=== PATIENT | female | born 1945 | race Caucasian/White ===

== ENCOUNTER → 2017-01-23 | Outpatient (CLI) | payer OTHER | LOC: BMCIMAGING 13:22 | PROVIDERS: ATTEND Nurse Practitioner Adult Health | DX: Z12.31 Encounter for screening mammogram for malignant neoplasm of breast (principal); Z13.820 Encounter for screening for osteoporosis | CPT/HCPCS: G0202 ==

== ENCOUNTER → 2017-03-04 | Outpatient (CLI) | payer OTHER | LOC: BMCIMAGING 12:43 | PROVIDERS: ATTEND Nurse Practitioner Adult Health | DX: R05 Cough (principal); J98.6 Disorders of diaphragm; J98.11 Atelectasis ==

== ENCOUNTER → 2017-12-19 | Outpatient (CLI) | payer OTHER | LOC: BMCIMAGING 11:12 | PROVIDERS: ATTEND Nurse Practitioner Adult Health | DX: M51.36 Other intervertebral disc degeneration, lumbar region (principal); Z87.311 Personal history of (healed) other pathological fracture ==

== ENCOUNTER 2018-11-07 12:38 | Day surgery (SDC) | payer OTHER ==
[2018-11-07] MEDS ORDERED: ceFAZolin 2 GM/DEXTROSE 100 ML IV ONE (13:13)
--- NOTE | 2018-11-07 13:14 | PDHPUP ---
History & Physical Update H&P update statement: This history and physical update is based on an assessment of the patient which was completed after admission or registration (within 24 hours), but prior to the surgery/procedure. H&P update: H&P reviewed & patient examined, no change in patient's condition since H&P completed
[2018-11-07] MEDS ORDERED: LR 1,000 ML IV ONE (13:15)
[2018-11-07] MEDS ORDERED: LIDOCAINE 1% 2 ML INJ ID PRN (13:15)
[2018-11-07] MEDS ORDERED: IOPAMIDOL (ISOVUE-M 300) 15 ML VIAL ONE (14:04)
[2018-11-07] MEDS ORDERED: PROPOFOL 200 MG/20 ML VIAL ONE (14:52)
[2018-11-07] MEDS ORDERED: fentaNYL 100 MCG/2 ML INJ ONE (14:52)
[2018-11-07] MEDS ORDERED: DEXAMETHASONE 4 MG/ML VIAL ONE (14:54)
[2018-11-07] MEDS ORDERED: LIDOCAINE 2% 2 ML INJ ONE ×2 (14:54)
[2018-11-07] MEDS ORDERED: KETOROLAC 30 MG/1 ML SDV ONE (14:54)
--- NOTE | 2018-11-07 14:59 | PDANEPAE ---
ANE History of Present Illness right ureteral stone ANE Past Medical History - Cardiovascular History Hx Hypertension: Yes Hx Arrhythmias: No Hx Chest Pain: No Hx Coronary Artery / Peripheral Vascular Disease: No Hx CHF / Valvular Disease: No Hx Palpitations: No - Pulmonary History Hx COPD: No Hx Asthma/Reactive Airway Disease: No Hx Recent Upper Respiratory Infection: No Hx Oxygen in Use at Home: No Hx Sleep Apnea: No Sleep Apnea Screening Result - Last Documented: Negative Pulmonary History Comment: QUIT 30 YEARS AGO - Neurologic History Hx Cerebrovascular Accident: No Hx Seizures: No Hx Dementia: No - Endocrine History Hx Diabetes: No Obesity: mild - Renal History Hx Renal Disorders: Yes Renal History Comment: FIRST KIDNEY STONE - Liver History Hx Hepatic Disorders: No - Neurological & Psychiatric Hx Hx Neurological and Psychiatric Disorders: Yes Neurological / Psychiatric History Comment: DEPRESSION - Cancer History Hx Cancer: No - Congenital Disorder History Hx Congenital Disorders: No - GI History Hx Gastrointestinal Disorders: No - Chronic Pain History Chronic Pain: No - Surgical History Prior Surgeries: GALLBLADDER. HYSERECTOMY. FOOT SURGERIES ANE Review of Systems Review of systems is: negative Review of Systems: - Exercise capacity METS (RN): 4 METS ANE Patient History - Allergies Allergies/Adverse Reactions: No Allergies [NKDA] Allergy (Verified 11/06/18 22:14) - Home Medications Home medications: home medication list seen and reviewed Home Medications: Cholecalciferol (Vitamin D3) [Vitamin D3] 1,000 unit PO 11/07/18 [Last Taken ] Estradiol [Estrace Vaginal (*)] 11/07/18 [Last Taken 10/31/18] Flomax 0.4 MG (*) 11/07/18 [Last Taken 11/06/18 19:00] Levothyroxine [Synthroid 175 mcg (*)] 175 mcg PO DAILY06 11/07/18 [Last Taken 09:00] Losartan/Hydrochlorothiazide [Hyzaar 100-12.5 Tablet] 11/07/18 [Last Taken 09:00] Multivitamin [One Daily] 11/07/18 [Last Taken 11/06/18] Triamcinolone Acetonide [Nasacort] 11/07/18 [Last Taken 11/07/18] buPROPion XL [Wellbutrin 150mg XL] 11/07/18 [Last Taken 11/07/18 09:00] - NPO status NPO Since - Liquids (Date): 11/06/18 NPO Since - Liquids (Time): 22:30 NPO Since - Solids (Date): 11/06/18 NPO Since - Solids (Time): 15:00 - Anes Hx Anes Hx: no prior problems - Smoking Hx Smoking Status: Former smoker ANE Labs/Vital Signs - Vital Signs Height: 165.1 cm Weight: 81.647 kg ANE Physical Exam - Airway Neck exam: FROM Mallampati Score: Class 2 Mouth exam: normal dental/mouth exam - Pulmonary Pulmonary: no respiratory distress - Cardiovascular Cardiovascular: regular rate and rhythym - ASA Status ASA Status: II ANE Anesthesia Plan Anesthesia Plan: GA w LMA
--- NOTE | 2018-11-07 14:59 | POSTANESTH ---
Post Anesthetic Evaluation Cardiovascular Status: Normal, Stable Respiratory Status: Normal, Stable Level of Consciousness/Mental Status: Can Participate in Eval, Alert and Oriented Pain Control: Adequate, Prn Tx Ordered Nausea/Vomiting Control: Adequate, Prn Tx Ordered Complications Possibly Related to Anesthesia: None Noted
[2018-11-07] MEDS ORDERED: oxyCODONE IR 5 MG TAB PO PRN (15:19)
[2018-11-07] MEDS ORDERED: ACETAMINOPHEN 500 MG TAB PO PRN (15:19)
[2018-11-07] MEDS ORDERED: NALOXONE HCL 0.4 MG/ML INJ IVP PRN (15:19)
[2018-11-07] MEDS ORDERED: PROMETHAZINE HCL 25 MG/ML INJ IVP PRN (15:19)
[2018-11-07] MEDS ORDERED: ALBUTEROL 3 ML DEYVIAL IH PRN (15:19)
[2018-11-07] MEDS ORDERED: ONDANSETRON 4 MG/2 ML VIAL IVP PRN (15:19)
[2018-11-07] MEDS ORDERED: HYDROmorphONE/DILAUDID 2 MG/ML INJ IVP PRN (15:19)
[2018-11-07] MEDS ORDERED: LR 500 ML IV PRN (15:19)
[2018-11-07] MEDS ORDERED: fentaNYL 100 MCG/2 ML INJ IVP PRN (15:19)
[2018-11-07] MEDS ORDERED: METOCLOPRAMIDE 10 MG/2 ML VIAL IVP PRN (15:19)
--- NOTE | 2018-11-07 15:49 | POSTOPPROG ---
Post Op Note Date of Operation: 11/07/18 Surgeon: Chidi Willis Anesthesia: LMA Pre-op Diagnosis: right ureteral stone Post-op Diagnosis: same Indication: remove stone Procedure: cysto, right ureteroscopy, laser litho, right stent Findings: large stone in distal ureter Inf/Abcess present in the surg proc area at time of surgery?: No EBL: Minimal Complications: none Specimen(s): stone sent to path
--- NOTE | 2018-11-07 16:34 | GOP ---
[f rep st] OPERATIVE REPORT DATE OF OPERATION: SURGEON: Chidi Willis MD ANESTHESIA: General. PREOPERATIVE DIAGNOSIS: Right ureteral stone. POSTOPERATIVE DIAGNOSIS: Right ureteral stone. PROCEDURE PERFORMED: Right ureteroscopy, laser lithotripsy, stent placement. FINDINGS: INDICATIONS: This is a woman who presented with a right ureteral stone with significant hydronephros is. DESCRIPTION OF PROCEDURE: Consent obtained, patient was brought to the operating room. Once general anesthesia was underway, she was put in the lithotomy position, prepped and draped in the normal della rile fashion. A 22-Bolivian rigid scope was passed through the bladder under direct vision. Anterior urethra and bladder were normal. The right ureteral orifice was cannulated with a 0.035 Sensor wire. This was followed fluoroscopically up to the renal pelvis. Semi-rigid ureteroscope was then passed into the distal ureter. The stone was identified and 365 micron holmium laser fiber was utilized to break the stone into multiple fragments. Several of these fragments were washed from the ureter. T he largest pieces were grasped with a basket and sent to pathology for evaluation. The scope was then replaced. There was no evidence of any remaining stone. The ureteroscope was rem jose g. A 6 Bol[place]ian x 22 cm stent was then passed over the guidewire. It was seen to coil fluoroscopic ally in the renal pelvis and cystoscopically in the bladder. The bladder was drained. The patient w as transferred to the recovery room in good condition. /[id number]/MODL
[2018-11-07 17:09] VITALS: BP 122/75
== END 2018-11-07 17:09 | disposition home or self-care (01) ==
LOC: FSGY 12:38
PROVIDERS: ATTEND Urology
PROC: BT1F1ZZ Fluoroscopy of Left Kidney, Ureter and Bladder using Low Osmolar Contrast (ICD-10-PCS; principal; 2018-11-07 15:00)
PROC: 0TC68ZZ Extirpation of Matter from Right Ureter, Via Natural or Artificial Opening Endoscopic (ICD-10-PCS; principal; 2018-11-07 15:00)
PROC: 0TF68ZZ Fragmentation in Right Ureter, Via Natural or Artificial Opening Endoscopic (ICD-10-PCS; principal; 2018-11-07 15:00)
PROC: 0T768DZ Dilation of Right Ureter with Intraluminal Device, Via Natural or Artificial Opening Endoscopic (ICD-10-PCS; principal; 2018-11-07 15:00)
DX: N20.1 Calculus of ureter (principal); E03.9 Hypothyroidism, unspecified; G47.00 Insomnia, unspecified; I10 Essential (primary) hypertension; E56.9 Vitamin deficiency, unspecified; F32.9 Major depressive disorder, single episode, unspecified; Z87.891 Personal history of nicotine dependence; Z90.710 Acquired absence of both cervix and uterus
CPT/HCPCS: 52356; C1769; C2617; J0690; J1100; J1885; J2704; J3010; Q9967